=== PATIENT | male | born 1940 | race Caucasian/White ===

== ENCOUNTER 2020-06-04 16:31 | Inpatient (IN) | payer MEDICARE ==
[~2020-06-04] VITALS: Ht 177.8 cm; Wt 90.5 kg
--- NOTE | 2020-06-04 17:05 | NUR ---
C/O COUGH X4 DAYS, WAS RECENTLY EXPOSED TO COVID FROM HIS BROTHER WHO IS IN ICU IN [place], PT REPORTS HE WAS WITH HIM FOR 1 WEEK WHILE VISITING. PLACED ON VITALS MONITORS. ERMD AT BEDSIDE FOR EVAL .
[2020-06-04] MEDS ORDERED: DEXAMETHASONE 4 MG/ML, 1ML ONE (17:39)
[2020-06-04] MEDS ORDERED: CEFTRIAXONE PMX 1GM/50ML 50 ML ONE (17:40)
[2020-06-04 17:49] LABS: BASOPHILS % (AUTO) 0 % (0-1); EOSINOPHILS % (AUTO) 1 % (1-7); LYMPHOCYTES % (AUTO) 11 % (22-44); MEAN CORPUSCULAR HEMOGLOBIN 27.6 pg (27.5-34.5); MEAN CORPUSCULAR HGB CONC 33.3 g/dL (33.2-36.2); MEAN PLATELET VOLUME 6.8 fL (7.4-10.4); MONOCYTES % (AUTO) 9 % (2-9); NEUTROPHILS % (AUTO) 79 % (42-75); PLATELET COUNT 218 x10^3/uL (130-400); RED BLOOD COUNT 4.46 x10^6/uL (4.38-5.82); RED CELL DISTRIBUTION WIDTH 16.7 % (9.4-14.8)
[2020-06-04 17:50] LABS: MD NO
[2020-06-04 17:51] LABS: ALANINE AMINOTRANSFERASE 28 U/L (12-78); ALBUMIN 3.1 g/dL (3.4-5.0); ANION GAP 8 mmol/L (5-15); CALCIUM 8.4 mg/dL (8.5-10.1); CHLORIDE 105 mmol/L (98-107); CREATININE 1.44 mg/dL (0.7-1.3)
[2020-06-04 18:00] LABS: ALKALINE PHOSPHATASE 66 U/L (45-117); BILIRUBIN,TOTAL 0.8 mg/dL (0.2-1.0); C-REACTIVE PROTEIN, QUANT 6.33 mg/dL (0.02-0.49); TOTAL PROTEIN 7.6 g/dL (6.4-8.2)
[2020-06-04] MEDS ORDERED: CEFTRIAXONE PMX 1GM/50ML 50 ML IV ONE (18:00)
[2020-06-04] MEDS ORDERED: DOXYCYCLINE 100MG TABLET PO ONE (18:00)
[2020-06-04] MEDS ORDERED: DEXAMETHASONE 4 MG/ML, 1ML IVPush ONE (18:00)
[2020-06-04 18:03] LABS: D-DIMER (DIC) 1.79 ug/mlFEU (0.00-0.52); PROTIME 9.9 Seconds (9.6-11.5)
[2020-06-04] MEDS: CEFTRIAXONE PMX 1GM/50ML 50 ML IV SCH (18:43)
[2020-06-04] MEDS ORDERED: DOXYCYCLINE 100MG TABLET ONE (18:51)
[2020-06-04] MEDS ORDERED: DOXYCYCLINE 100 MG in DEXTROSE 5% 250 ML IV SCH (19:00)
[2020-06-04] MEDS ORDERED: POLYETHYLENE GLYCOL 17 GM PACKET PO PRN (19:00)
[2020-06-04] MEDS ORDERED: BISACODYL 10 MG SUPP PR PRN (19:00)
[2020-06-04] MEDS ORDERED: ONDANSETRON ODT 4 MG PO PRN (19:00)
[2020-06-04] MEDS ORDERED: ACETAMINOPHEN 325 MG TABLET PO PRN (19:00)
--- NOTE | 2020-06-04 19:09 | NUR ---
TASK RN: MEAL TRAY ORDERED AND MEDS REQUESTED FROM [facility].
[2020-06-04] MEDS ORDERED: HEPARIN 5,000 UNITS/ML, 1ML ONE (19:30)
[2020-06-04] MEDS: HEPARIN 5,000 UNITS/ML, 1ML SQ SCH (19:35)
[2020-06-04] MEDS: SODIUM CHLORIDE 0.9% 1,000 ML IV SCH (19:35)
--- NOTE | 2020-06-04 19:45 | NUR ---
PROVIDED MEAL TRAY.
[2020-06-04] MEDS: HYDROXYCHLOROQUINE 200 MG TABLET PO SCH (20:41)
[2020-06-04] MEDS ORDERED: ACETAMINOPHEN 325 MG TABLET ONE (22:19)
--- NOTE | 2020-06-04 23:01 | NUR ---
REPORT GIVEN TO AURELIA MEDINA.
--- NOTE | 2020-06-04 23:03 | NUR ---
REPORT FROM CAROL NORMAN. PT SITTING IN GURNEY, BELONGINGS AND CALL LIGHT IN REACH. CONNECTED TO CARDIAC AND BP MONITORS. HOSPITAL BED ORDERED.
--- NOTE | 2020-06-05 01:44 | NUR ---
PT UP SO JORDON COULD BE CHANGED FOR HOSPITAL BED. NADN. PT REMAINS ON O2. CONNECTED TO CARDIAC, BP AND O2 MONITORS. BELONGINGS, URINAL AND CALL LIGHT IN REACH. LIGHTS OFF TO PROMOTE REST. ALL NEEDS MET AT THIS TIME.
[2020-06-05] MEDS: HEPARIN 5,000 UNITS/ML, 1ML SQ SCH ×3 (02:04→18:08)
--- NOTE | 2020-06-05 04:24 | NUR ---
PT SLEEPING, MOVING SELF IN SLEEP TO POSITION OF COMFORT. LIGHTS OFF TO PROMOTE REST, CALL LIGHT IN REACH.
[2020-06-05 05:25] LABS: BASOPHILS % (AUTO) 0 % (0-1); EOSINOPHILS % (AUTO) 0 % (1-7); LYMPHOCYTES % (AUTO) 12 % (22-44); MEAN CORPUSCULAR HEMOGLOBIN 27.5 pg (27.5-34.5); MEAN CORPUSCULAR HGB CONC 32.7 g/dL (33.2-36.2); MEAN PLATELET VOLUME 6.9 fL (7.4-10.4); MONOCYTES % (AUTO) 5 % (2-9); NEUTROPHILS % (AUTO) 83 % (42-75); PLATELET COUNT 234 x10^3/uL (130-400); RED BLOOD COUNT 4.09 x10^6/uL (4.38-5.82); RED CELL DISTRIBUTION WIDTH 16.8 % (9.4-14.8)
[2020-06-05 05:29] LABS: MD NO
[2020-06-05 05:35] LABS: ANION GAP 7 mmol/L (5-15); CALCIUM 8.6 mg/dL (8.5-10.1); CHLORIDE 108 mmol/L (98-107); CREATININE 1.38 mg/dL (0.7-1.3)
[2020-06-05] MEDS: SODIUM CHLORIDE 0.9% 1,000 ML IV SCH (06:01)
--- NOTE | 2020-06-05 06:10 | NUR ---
PT REMAINS SLEEPING INTERMITTENTLY, ALL NEEDS MET AT THIS TIME.
[2020-06-05] MEDS ORDERED: DOXYCYCLINE 100MG TABLET PO SCH (06:30)
--- NOTE | 2020-06-05 06:55 | NUR ---
REPORT TO ACROL CHACON. PT SLEEPING, ZACK.
--- NOTE | 2020-06-05 07:00 | NUR ---
SBAR HAND-OFF REPORT RECEIVED FROM CAROL MOSES. ASSUMING CARE OF PATIENT.
--- NOTE | 2020-06-05 08:04 | NUR ---
PHARMACY REQUEST SLIP SENT FOR ENRIQUE MILLER.
[2020-06-05] MEDS ORDERED: DEXAMETHASONE 4 MG/ML, 1ML ONE (08:24)
[2020-06-05] MEDS ORDERED: DOXYCYCLINE 100MG TABLET ONE ×2 (08:24→20:20)
[2020-06-05] MEDS ORDERED: SENNA/DOCUSATE TABLET ONE (08:24)
--- NOTE | 2020-06-05 08:39 | NUR ---
BREAKFAST TRAY SERVED TO PATIENT. VS UPDATED AND STABLE. PT EATING AND HAS NO COMPLAINTS AT THIS TIME. CALL BUTTON NEAR LAP.
[2020-06-05] MEDS ORDERED: DEXAMETHASONE 4 MG/ML, 1ML IVPush SCH (09:00)
[2020-06-05] MEDS ORDERED: ASCO500T93 PO (09:34)
[2020-06-05] MEDS ORDERED: LEVO50TA PO (09:34)
[2020-06-05] MEDS ORDERED: COD1CAPS6 PO (09:35)
[2020-06-05] MEDS ORDERED: LOVA20TA2 PO (09:35)
[2020-06-05] MEDS ORDERED: MULT-658 PO (09:36)
[2020-06-05] MEDS ORDERED: ASPI-650 PO (09:36)
[2020-06-05] MEDS ORDERED: CHOL10003 PO (09:36)
--- NOTE | 2020-06-05 09:42 | NUR ---
CALLED DR. TAYLOR AND LET HER KNOW THAT PATIENT'S MED REC IS NOW COMPLETE AND THAT PATIENT HASN'T HAD HIS LEVOTHYROXINE YET. DR. TAYLOR TO ORDER.
[2020-06-05] MEDS: HYDROXYCHLOROQUINE 200 MG TABLET PO SCH ×2 (09:47→21:39)
[2020-06-05] MEDS: SENNA/DOCUSATE TABLET PO SCH (09:47)
[2020-06-05] MEDS: DOXYCYCLINE 100MG TABLET PO SCH ×2 (09:47→21:39)
[2020-06-05] MEDS ORDERED: methylPREDNISolone SOD SUCC 40 MG/ML ONE ×2 (10:14→20:20)
[2020-06-05] MEDS ORDERED: HEPARIN 5,000 UNITS/ML, 1ML ONE ×2 (10:20→17:57)
[2020-06-05] MEDS: methylPREDNISolone SOD SUCC 40 MG/ML IV SCH ×2 (10:26→21:39)
[2020-06-05] MEDS: LEVOTHYROXINE 50 MCG TABLET PO SCH (10:26)
--- NOTE | 2020-06-05 10:33 | NUR ---
PT MEDICATED PER MAR. COVID SWAB COLLECTED AND WALKED TO LAB.
--- NOTE | 2020-06-05 14:45 | NUR ---
LUNCH TRAY SERVED TO PATIENT.
[2020-06-05] MEDS ORDERED: GUAIFENESIN/DM 200-20MG, 10ML UDC ONE ×2 (15:40→22:05)
[2020-06-05] MEDS: GUAIFENESIN/DM 200-20MG, 10ML UDC PO PRN ×2 (15:41→22:07)
--- NOTE | 2020-06-05 15:43 | NUR ---
PRN ROBITUSSIN GIVEN FOR COUGH. PT RESTING WITH NO COMPLAINTS.
[2020-06-05] MEDS ORDERED: CEFTRIAXONE PMX 1GM/50ML 50 ML ONE (17:57)
[2020-06-05] MEDS: CEFTRIAXONE PMX 1GM/50ML 50 ML IV SCH (18:08)
--- NOTE | 2020-06-05 18:09 | NUR ---
DINNER SERVED TO PATIENT. PT MEDICATED PER EMAR.
--- NOTE | 2020-06-05 19:03 | NUR ---
BEDSIDE REPORT FROM OSWALDO MEDINA. PT RESTING ON HOSPITAL BED, NAD, SKIN WARM AND DRY, APPEARS COMFORTALBE, DENIES ADDITIONAL NEEDS AT THIS TIME, BED IN LOWEST CONDITION, CALL LIGHT ON LAP, WCTM. WAITING FOR ADMIT BED
--- NOTE | 2020-06-05 20:30 | NUR ---
MEDS REQUESTED FROM PHARMACY, PT LAYING ON HOSPITAL BED, WATCHING TELEVISION, NAD, DENIES ADDITIONAL NEEDS, URINAL EMPTIED, WCTM. WAITING FOR ADMIT BED.
--- NOTE | 2020-06-05 21:45 | NUR ---
PT MEDICATED PER MAR, NAD, DENIES ADDITIONAL NEEDS OR QUESTIONS AT THIS TIME, WAITING FOR ADMIT BED, EVEN AND UNLABORED RESPIRATIONS, WCTM.
--- NOTE | 2020-06-05 22:47 | NUR ---
PT RESTING ON HOSPITAL BED, NAD, LIGHTS OFF FOR SLEEP, PT EYES CLOSED, LAYING ON SIDE, APPEARS COMFORTABLE, EVEN AND UNLABORED RESPIRATIONS. WCTM. WAITING FOR ADMIT BED
--- NOTE | 2020-06-06 01:03 | NUR ---
REPORT TO AMENA MEDINA. PT CARE TRANSFERRED AT THIS TIME. PT NAD, EYES CLOSED, EVEN AND UNLABORED RESPIRATIONS, APPEARS COMFORTABLE.
--- NOTE | 2020-06-06 01:05 | NUR ---
REPORT FROM MICHAEL MEDINA ASSUMING CARE OF PT AT THIS TIME, PT RESTING ON HOSPITAL BED NADN CALL LIGHT IN REACH
--- NOTE | 2020-06-06 05:36 | NUR ---
REQUEST FOR MEDICATION SENT TO PHARMACY AT THIS TIME
[2020-06-06] MEDS ORDERED: HEPARIN 5,000 UNITS/ML, 1ML ONE (05:44)
[2020-06-06] MEDS: LEVOTHYROXINE 50 MCG TABLET PO SCH (05:57)
[2020-06-06] MEDS: HEPARIN 5,000 UNITS/ML, 1ML SQ SCH ×3 (05:57→20:41)
--- NOTE | 2020-06-06 06:00 | NUR ---
PT MEDICATED PER OCT, NADN NO NEEDS AT THIS TIME VSS PT RESTING ON HOSPITAL BED
--- NOTE | 2020-06-06 07:22 | NUR ---
patient in bed, rails up. resting quietly.
--- NOTE | 2020-06-06 07:26 | NUR ---
PATIENT HELPED TO GET TO BEDSIDE COMMODE TO BATHROOM
--- NOTE | 2020-06-06 08:39 | NUR ---
patient given breakfast. he was on phone talking to family, [id number], and states hungry and all ok.
[2020-06-06] MEDS ORDERED: methylPREDNISolone SOD SUCC 125 MG/2 ML ONE (08:59)
[2020-06-06] MEDS ORDERED: DOXYCYCLINE 100MG TABLET ONE (08:59)
[2020-06-06] MEDS ORDERED: SENNA/DOCUSATE TABLET ONE (09:00)
[2020-06-06] MEDS: SENNA/DOCUSATE TABLET PO SCH (09:08)
[2020-06-06] MEDS: DOXYCYCLINE 100MG TABLET PO SCH ×2 (09:09→20:41)
[2020-06-06] MEDS: methylPREDNISolone SOD SUCC 40 MG/ML IV SCH ×2 (09:09→20:41)
[2020-06-06 09:12] LABS: ANION GAP 8 mmol/L (5-15); CALCIUM 8.8 mg/dL (8.5-10.1); CHLORIDE 110 mmol/L (98-107)
[2020-06-06 09:13] LABS: CREATININE 1.35 mg/dL (0.7-1.3)
--- NOTE | 2020-06-06 09:37 | NUR ---
patient ate 20% of food, states not hungry. report to [place] MEDINA
[2020-06-06 10:00] VITALS: BP 125/74
[2020-06-06 14:00] VITALS: BP 127/74
[2020-06-06 20:28] VITALS: BP 118/68
[2020-06-06] MEDS: CEFTRIAXONE PMX 1GM/50ML 50 ML IV SCH (20:41)
[2020-06-07 00:12] VITALS: BP 137/73
[2020-06-07] MEDS: LEVOTHYROXINE 50 MCG TABLET PO SCH (05:23)
[2020-06-07] MEDS: HEPARIN 5,000 UNITS/ML, 1ML SQ SCH ×3 (05:23→20:58)
[2020-06-07 07:57] VITALS: BP 141/78
[2020-06-07] MEDS: SENNA/DOCUSATE TABLET PO SCH (08:05)
[2020-06-07] MEDS: DOXYCYCLINE 100MG TABLET PO SCH ×2 (08:06→20:58)
[2020-06-07] MEDS: methylPREDNISolone SOD SUCC 40 MG/ML IV SCH (08:06)
[2020-06-07] MEDS ORDERED: CHOLECALCIFEROL 5,000u TAB PO SCH (10:00)
[2020-06-07 10:02] LABS: BASOPHILS % (AUTO) 0 % (0-1); EOSINOPHILS % (AUTO) 0 % (1-7); LYMPHOCYTES % (AUTO) 4 % (22-44); MEAN CORPUSCULAR HEMOGLOBIN 27.1 pg (27.5-34.5); MEAN CORPUSCULAR HGB CONC 32.5 g/dL (33.2-36.2); MEAN PLATELET VOLUME 6.4 fL (7.4-10.4); MONOCYTES % (AUTO) 4 % (2-9); PLATELET COUNT 326 x10^3/uL (130-400); RED BLOOD COUNT 4.47 x10^6/uL (4.38-5.82); RED CELL DISTRIBUTION WIDTH 16.8 % (9.4-14.8)
[2020-06-07 10:11] LABS: ALANINE AMINOTRANSFERASE 47 U/L (12-78); ALBUMIN 2.9 g/dL (3.4-5.0); ANION GAP 9 mmol/L (5-15); CALCIUM 9.5 mg/dL (8.5-10.1); CHLORIDE 109 mmol/L (98-107); CREATININE 1.28 mg/dL (0.7-1.3)
[2020-06-07 10:14] LABS: ALKALINE PHOSPHATASE 65 U/L (45-117); BILIRUBIN,TOTAL 0.7 mg/dL (0.2-1.0); TOTAL PROTEIN 6.9 g/dL (6.4-8.2)
[2020-06-07] MEDS: ZINC SULFATE 220 MG CAPSULE PO SCH (10:16)
[2020-06-07] MEDS: ASCORBIC ACID 500 MG TABLET PO SCH ×2 (10:16→16:29)
[2020-06-07] MEDS: DEXAMETHASONE 4 MG/ML, 1ML IVPush SCH (10:16)
[2020-06-07 10:33] LABS: MD YES
[2020-06-07 10:35] LABS: BAND#(MANUAL) 0.72 x10^3/uL; BANDS%(MANUAL) 6 % (0-7); LYMPH#(MANUAL) 0.72 x10^3/uL (1-3.4); LYMPHS% (MANUAL) 6 % (22-44); MONOS#(MANUAL) 0.36 x10^3/uL (0.3-2.7); MONOS% (MANUAL) 3 % (2-9); SEGS% (MANUAL) 85 % (42-75)
[2020-06-07 10:36] LABS: ANISOCYTOSIS 1+; OVALOCYTES 1+
[2020-06-07 10:37] LABS: <PLATELET ESTIMATE> ADEQUATE; <PLT MORPHOLOGY> NORMAL PLT MORPH
[2020-06-07] MEDS ORDERED: REMDESIVIR 200 MG in SODIUM CHLORIDE 0.9% 250 ML IVPB ONE ×2 (11:00→16:00)
[2020-06-07] MEDS: THIAMINE 100MG TABLET PO SCH (12:06)
[2020-06-07] MEDS: CHOLECALCIFEROL 1,000 UNIT TABLET PO SCH (12:06)
[2020-06-07 14:00] VITALS: BP 127/76
[2020-06-07] MEDS: CEFTRIAXONE PMX 1GM/50ML 50 ML IV SCH (20:00)
[2020-06-07 21:02] VITALS: BP 132/86
[2020-06-08 01:16] VITALS: BP 138/68
[2020-06-08] MEDS: HEPARIN 5,000 UNITS/ML, 1ML SQ SCH ×3 (05:00→21:01)
[2020-06-08 05:01] LABS: BASOPHILS % (AUTO) 0 % (0-1); EOSINOPHILS % (AUTO) 0 % (1-7); LYMPHOCYTES % (AUTO) 9 % (22-44); MEAN CORPUSCULAR HEMOGLOBIN 27.4 pg (27.5-34.5); MEAN CORPUSCULAR HGB CONC 32.8 g/dL (33.2-36.2); MEAN PLATELET VOLUME 6.2 fL (7.4-10.4); MONOCYTES % (AUTO) 8 % (2-9); NEUTROPHILS % (AUTO) 83 % (42-75); PLATELET COUNT 309 x10^3/uL (130-400); RED CELL DISTRIBUTION WIDTH 16.8 % (9.4-14.8)
[2020-06-08 05:13] LABS: CHLORIDE 112 mmol/L (98-107)
[2020-06-08 05:16] LABS: MD NO
[2020-06-08 05:26] LABS: ALANINE AMINOTRANSFERASE 65 U/L (12-78); ALBUMIN 2.7 g/dL (3.4-5.0); ALKALINE PHOSPHATASE 65 U/L (45-117); ANION GAP 9 mmol/L (5-15); BILIRUBIN,TOTAL 0.5 mg/dL (0.2-1.0); CALCIUM 8.6 mg/dL (8.5-10.1); CREATININE 1.12 mg/dL (0.7-1.3); TOTAL PROTEIN 6.6 g/dL (6.4-8.2)
[2020-06-08] MEDS: LEVOTHYROXINE 50 MCG TABLET PO SCH (05:50)
[2020-06-08 06:02] LABS: D-DIMER 2.04 ug/mlFEU (0.00-0.52); INTERNATIONAL NORMALIZED RATIO 1.07 (0.93-1.1); PROTHROMBIN TIME 11.3 Seconds (9.6-11.5)
[2020-06-08] MEDS: SENNA/DOCUSATE TABLET PO SCH ×2 (09:00→09:30)
[2020-06-08 09:27] VITALS: BP 122/81
[2020-06-08] MEDS: DEXAMETHASONE 4 MG/ML, 1ML IVPush SCH (09:29)
[2020-06-08] MEDS: ASCORBIC ACID 500 MG TABLET PO SCH ×3 (09:29→16:44)
[2020-06-08] MEDS: DOXYCYCLINE 100MG TABLET PO SCH ×2 (09:30→21:01)
[2020-06-08] MEDS: CHOLECALCIFEROL 1,000 UNIT TABLET PO SCH (09:30)
[2020-06-08] MEDS: THIAMINE 100MG TABLET PO SCH (09:30)
[2020-06-08] MEDS: ZINC SULFATE 220 MG CAPSULE PO SCH (09:30)
[2020-06-08] MEDS ORDERED: REMDESIVIR 100 MG in SODIUM CHLORIDE 0.9% 250 ML IVPB SCH (11:00)
[2020-06-08 13:20] VITALS: BP 115/73
[2020-06-08] MEDS: REMDESIVIR 100 MG in SODIUM CHLORIDE 0.9% 250 ML IVPB SCH (16:44)
[2020-06-08 20:00] VITALS: BP 127/79
[2020-06-08] MEDS: CEFTRIAXONE PMX 1GM/50ML 50 ML IV SCH (21:00)
[2020-06-08] MEDS: GUAIFENESIN/DM 200-20MG, 10ML UDC PO PRN (21:01)
[2020-06-09 01:23] VITALS: BP 135/84
[2020-06-09 04:33] LABS: ALANINE AMINOTRANSFERASE 56 U/L (12-78); ALBUMIN 2.6 g/dL (3.4-5.0); ANION GAP 5 mmol/L (5-15); CHLORIDE 110 mmol/L (98-107)
[2020-06-09 04:36] LABS: ALKALINE PHOSPHATASE 64 U/L (45-117); BILIRUBIN,TOTAL 0.6 mg/dL (0.2-1.0); TOTAL PROTEIN 6.3 g/dL (6.4-8.2)
[2020-06-09 04:51] LABS: CALCIUM 8.1 mg/dL (8.5-10.1)
[2020-06-09] MEDS: LEVOTHYROXINE 50 MCG TABLET PO SCH (05:42)
[2020-06-09] MEDS: HEPARIN 5,000 UNITS/ML, 1ML SQ SCH (05:42)
[2020-06-09 08:00] VITALS: BP 101/68
[2020-06-09] MEDS: CHOLECALCIFEROL 1,000 UNIT TABLET PO SCH (09:00)
[2020-06-09] MEDS: ASCORBIC ACID 500 MG TABLET PO SCH ×3 (09:28→16:36)
[2020-06-09] MEDS: SENNA/DOCUSATE TABLET PO SCH (09:28)
[2020-06-09] MEDS: THIAMINE 100MG TABLET PO SCH (09:28)
[2020-06-09] MEDS: DOXYCYCLINE 100MG TABLET PO SCH ×2 (09:28→20:35)
[2020-06-09] MEDS: DEXAMETHASONE 4 MG/ML, 1ML IVPush SCH (09:28)
[2020-06-09] MEDS: ZINC SULFATE 220 MG CAPSULE PO SCH (09:28)
[2020-06-09] MEDS: ENOXAPARIN 40 MG/0.4 ML SQ SCH (09:29)
[2020-06-09 14:00] VITALS: BP 116/75
[2020-06-09] MEDS: REMDESIVIR 100 MG in SODIUM CHLORIDE 0.9% 250 ML IVPB SCH (16:27)
[2020-06-09] MEDS: CEFTRIAXONE PMX 1GM/50ML 50 ML IV SCH (20:35)
[2020-06-09 20:40] VITALS: BP 119/75
[2020-06-10 00:41] VITALS: BP 103/64
[2020-06-10 04:49] LABS: INTERNATIONAL NORMALIZED RATIO 1.21 (0.93-1.1); PROTHROMBIN TIME 12.8 Seconds (9.6-11.5)
[2020-06-10 04:55] LABS: ALBUMIN 2.5 g/dL (3.4-5.0); ANION GAP 5 mmol/L (5-15); CHLORIDE 109 mmol/L (98-107)
[2020-06-10 05:00] LABS: ALANINE AMINOTRANSFERASE 39 U/L (12-78); ALKALINE PHOSPHATASE 62 U/L (45-117); BILIRUBIN,TOTAL 0.8 mg/dL (0.2-1.0); CALCIUM 8.6 mg/dL (8.5-10.1); TOTAL PROTEIN 6.4 g/dL (6.4-8.2)
[2020-06-10] MEDS: LEVOTHYROXINE 50 MCG TABLET PO SCH (05:06)
[2020-06-10 07:10] LABS: BASOPHILS % (AUTO) 0 % (0-1); EOSINOPHILS % (AUTO) 1 % (1-7); LYMPHOCYTES % (AUTO) 7 % (22-44); MEAN CORPUSCULAR HEMOGLOBIN 27.6 pg (27.5-34.5); MEAN CORPUSCULAR HGB CONC 32.8 g/dL (33.2-36.2); MEAN PLATELET VOLUME 6.8 fL (7.4-10.4); MONOCYTES % (AUTO) 8 % (2-9); NEUTROPHILS % (AUTO) 84 % (42-75); PLATELET COUNT 349 x10^3/uL (130-400); RED BLOOD COUNT 4.45 x10^6/uL (4.38-5.82); RED CELL DISTRIBUTION WIDTH 16.9 % (9.4-14.8)
[2020-06-10 07:35] LABS: MD SCAN
[2020-06-10] MEDS: ENOXAPARIN 40 MG/0.4 ML SQ SCH (08:00)
[2020-06-10] MEDS: ASCORBIC ACID 500 MG TABLET PO SCH ×3 (09:13→16:54)
[2020-06-10] MEDS: SENNA/DOCUSATE TABLET PO SCH (09:13)
[2020-06-10] MEDS: THIAMINE 100MG TABLET PO SCH (09:13)
[2020-06-10] MEDS: ZINC SULFATE 220 MG CAPSULE PO SCH (09:14)
[2020-06-10] MEDS: DEXAMETHASONE 4 MG/ML, 1ML IVPush SCH (09:14)
[2020-06-10] MEDS: CHOLECALCIFEROL 1,000 UNIT TABLET PO SCH (09:14)
[2020-06-10] MEDS: DOXYCYCLINE 100MG TABLET PO SCH ×2 (09:14→20:34)
[2020-06-10 09:16] VITALS: BP 104/68
[2020-06-10 13:49] VITALS: BP 116/72
[2020-06-10] MEDS: REMDESIVIR 100 MG in SODIUM CHLORIDE 0.9% 250 ML IVPB SCH (14:25)
[2020-06-10 20:00] VITALS: BP 123/78
[2020-06-10] MEDS: CEFTRIAXONE PMX 1GM/50ML 50 ML IV SCH (20:45)
[2020-06-11 02:00] VITALS: BP 121/77
[2020-06-11 05:09] LABS: ALBUMIN 2.6 g/dL (3.4-5.0); ANION GAP 7 mmol/L (5-15); CALCIUM 8.6 mg/dL (8.5-10.1); CHLORIDE 109 mmol/L (98-107)
[2020-06-11 05:14] LABS: ALANINE AMINOTRANSFERASE 33 U/L (12-78); ALKALINE PHOSPHATASE 64 U/L (45-117); BILIRUBIN,TOTAL 0.6 mg/dL (0.2-1.0); TOTAL PROTEIN 6.8 g/dL (6.4-8.2)
[2020-06-11] MEDS: LEVOTHYROXINE 50 MCG TABLET PO SCH (06:09)
[2020-06-11 07:45] VITALS: BP 119/81
[2020-06-11] MEDS: ENOXAPARIN 40 MG/0.4 ML SQ SCH (07:47)
[2020-06-11] MEDS: ASCORBIC ACID 500 MG TABLET PO SCH ×2 (07:47→12:07)
[2020-06-11] MEDS: THIAMINE 100MG TABLET PO SCH (07:47)
[2020-06-11] MEDS: ZINC SULFATE 220 MG CAPSULE PO SCH (07:47)
[2020-06-11] MEDS: DOXYCYCLINE 100MG TABLET PO SCH (07:47)
[2020-06-11] MEDS: SENNA/DOCUSATE TABLET PO SCH (07:47)
[2020-06-11] MEDS: DEXAMETHASONE 4 MG/ML, 1ML IVPush SCH (07:47)
[2020-06-11] MEDS: CHOLECALCIFEROL 1,000 UNIT TABLET PO SCH (07:47)
[2020-06-11] MEDS: REMDESIVIR 100 MG in SODIUM CHLORIDE 0.9% 250 ML IVPB SCH (12:07)
[2020-06-11 13:28] VITALS: BP 105/69
== END 2020-06-11 16:30 | disposition home or self-care (01) | DRG 177 ==
LOC: ED 17:24 → EDIP 18:47 → ICU 06-06 09:55 → ORIP 06-09 12:19 → ICU 06-09 12:22
PROVIDERS: ADMIT Family Medicine; ATTEND Internal Medicine
PROC: XW033E5 Introduction of Remdesivir Anti-infective into Peripheral Vein, Percutaneous Approach, New Technology Group 5 (ICD-10-PCS; principal; 2020-06-07)
PROC: XW033E5 Introduction of Remdesivir Anti-infective into Peripheral Vein, Percutaneous Approach, New Technology Group 5 (ICD-10-PCS; 2020-06-08)
PROC: XW033E5 Introduction of Remdesivir Anti-infective into Peripheral Vein, Percutaneous Approach, New Technology Group 5 (ICD-10-PCS; 2020-06-09)
PROC: XW033E5 Introduction of Remdesivir Anti-infective into Peripheral Vein, Percutaneous Approach, New Technology Group 5 (ICD-10-PCS; 2020-06-10)
PROC: XW033E5 Introduction of Remdesivir Anti-infective into Peripheral Vein, Percutaneous Approach, New Technology Group 5 (ICD-10-PCS; 2020-06-11)
DX: U07.1 COVID-19 (principal); J96.01 Acute respiratory failure with hypoxia; N17.0 Acute kidney failure with tubular necrosis; J12.89 Other viral pneumonia; E87.2 Acidosis; D72.810 Lymphocytopenia; D63.8 Anemia in other chronic diseases classified elsewhere; E03.9 Hypothyroidism, unspecified; E88.09 Other disorders of plasma-protein metabolism, not elsewhere classified; F17.210 Nicotine dependence, cigarettes, uncomplicated
CPT/HCPCS: 36415; 71045; 80048; 80053; 82728; 83605; 83615; 84145; 85025; 85049; 85379; 85384; 85610; 85730; 86140; 87040; 87081; 87635; 93005; 96374; 96375; G0378; J0696; J1100; J1644; J1650; J2920; J7030; J7050